=== PATIENT | male | born 1980 | race Caucasian/White ===

== ENCOUNTER 2016-09-02 09:30 | Emergency (ER) | payer SELFPAY ==
[~2016-09-02] VITALS: Ht 172.7 cm; Wt 78.9 kg
[~2016-09-02 09:30] MED LIST: CEFD300C3 PO; CYCL10TA9 PO; MELO-198 PO; NAPR-243 PO; NF-ESOM40C PO; PRILOSEC OTC; RABE20TA; SULF1TAB35; TRAM50TA2 PO
[2016-09-02] MEDS ORDERED: NF-ESOM40C PO (09:44)
--- NOTE | 2016-09-02 10:09 | Diagnostic Imaging Report ---
INDICATION: Chest pain COMPARISON: 06/20/14 FINDINGS: Frontal and lateral views of the chest demonstrate clear lungs bilaterally. The heart size is normal. There is no pneumothorax. The osseous structures normal. IMPRESSION: Negative chest. Dictated by: Dictated on workstation # [id number]
--- NOTE | 2016-09-02 10:10 | Diagnostic Imaging Report ---
INDICATION: Left rib pain COMPARISON: None FINDINGS: 3 views of the left ribs demonstrate no fracture or dislocation. No osseous lesion. No pneumothorax or effusion. IMPRESSION: Negative left rib series. Dictated by: Dictated on workstation # [id number]
--- NOTE | 2016-09-02 10:20 | ED General ---
General Chief Complaint: Chest Wall/Rib Pain Stated Complaint: L RIB CAGE PAIN Nursing Triage Note: PT CO OF L RIB PAIN SEVERE, STATES STARTED YESTERDAY, L LOWER RIB DENIES INJURY AT THIS X.STATES HAD FLU COUPLE WEEKS AGO BUT HAS BEEN FINE PAST FEW DAYS Nursing Sepsis Screen: No Definite Risk Source of Information: Patient Exam Limitations: No Limitations History of Present Illness Time Seen by Provider: 09:40 Initial Comments This 35-year-old gentleman presents to the emergency room with complaints of intermittent intense pain in the left lower chest wall. Pain started yesterday and has been intensifying. He had difficulty sleeping last night despite using ibuprofen 600 mg. He reports having a flulike syndrome about a week ago but those symptoms have resolved. He is afebrile. Denies cough. Pain is worse with inspiration and palpation. Allergies and Home Medications Allergies Coded Allergies: ciprofloxacin (Unverified Allergy, Mild, 03/05/16) Home Medications Esomeprazole Magnesium 40 Mg Cap 40 MG PO DAILY (Reported) Prednisone 20 Mg Tab #8 40 MG PO DAILY Prescribed by: BOGDAN GONZALES on 09/02/16 1037 Constitutional: no symptoms reported EENTM: no symptoms reported Respiratory: see HPI Cardiovascular: no symptoms reported Gastrointestinal: no symptoms reported Genitourinary: no symptoms reported Musculoskeletal: see HPI Skin: no symptoms reported Psychiatric/Neurological: No Symptoms Reported Past Krfjhnq-Czkbhj-Jabfhb Hx Patient Social History Alcohol Use: Denies Use Recreational Drug Use: No Smoking Status: Current Everyday Smoker Recent Foreign Travel: No Contact w/Someone Who Travel: No Recent Infectious Disease Expo: No Recent Hopitalizations: No Immunizations Up To Date Tetanus Booster (TDap): More than 5yrs Seasonal Allergies Seasonal Allergies: Yes Surgeries HX Surgeries: No Respiratory Hx Respiratory Disorders: No Cardiovascular Hx Cardiac Disorders: No Neurological Hx Neurological Disorders: No Reproductive System Hx Reproductive Disorders: No Genitourinary Hx Genitourinary Disorders: No Gastrointestinal Hx Gastrointestinal Disorders: Yes Gastrointestinal Disorders: Gastroesophageal Reflux Musculoskeletal Hx Musculoskeletal Disorders: No Endocrine Hx Endocrine Disorders: No HEENT HX ENT Disorders: No Cancer Hx Cancer: No Psychosocial Hx Psychiatric Problems: No Integumentary HX Skin/Integumentary Disorder: No Blood Transfusions Hx Blood Disorders: No Family Medical History Significant Family History: No Pertinent Family Hx, Heart Disease, Diabetes, Hypertension Physical Exam Vital Signs Vital Sign - Last 12Hours 09/02/16 09:35 Temp 97.4 Pulse 92 Resp 18 B/P 111/96 Pulse Ox 97 Capillary Refill : Less Than 3 Seconds General Appearance: No Apparent Distress WD/WN HEENT: Normal ENT Inspection Neck: Normal Inspection Respiratory: Lungs Clear Normal Breath Sounds No Accessory Muscle Use No Respiratory Distress Other (left lower anterior, lateral, and posterior chest wall tender to palpation) Cardiovascular: Regular Rate, Rhythm No Edema No Murmur Gastrointestinal: Normal Bowel Sounds Non Tender Soft Extremity: Normal Inspection No Pedal Edema Neurologic/Psychiatric: Alert Oriented x3 No Motor/Sensory Deficits Normal Mood/Affect bottling line attendant II-XII Norm as Tested Skin: Normal Color Warm/DryNo Rash Progress/Results/Core Measures Results/Orders My Orders Orders-BOGDAN JENKINS MD Chest Pa/Lat (2 View) (09/02/16 09:48) Ribs, Left 2-3 Views (09/02/16 09:48) Ketorolac Injection (Toradol Injection) (09/02/16 10:30) Medications Given in ED Current Medications Medications Dose Ordered Sig/Cal Route Start Time Stop Time Status Last Admin Dose Admin Ketorolac Tromethamine 60 mg ONCE ONCE IM 09/02/16 10:30 09/02/16 10:32 DC 09/02/16 10:35 60 MG Vital Signs/I&O Vital Sign - Last 12Hours 09/02/16 09/02/16 09:35 10:50 Temp 97.4 97.4 Pulse 92 92 Resp 18 18 B/P 111/96 Pulse Ox 97 97 Blood Pressure Mean: 101 Progress Note : Progress Note X-rays were negative. Toradol was administered for treatment of pain. Diagnostic Imaging Diagonstic Imaging: Xray Plain Films/CT/US/NM/MRI: chest Comments Chest x-ray viewed by me and report reviewed. See report below: NAME: MARIELA OLVERA [facility] REC#: [id number] PT STATUS: REG ER : 1980 PHYSICIAN: BOGDAN JENKINS MD ADMIT DATE: 09/02/16/ER Draft Date of Exam:09/02/16 CHEST PA/LAT (2 VIEW) INDICATION: Chest pain COMPARISON: 06/20/14 FINDINGS: Frontal and lateral views of the chest demonstrate clear lungs bilaterally. The heart size is normal. There is no pneumothorax. The osseous structures normal. IMPRESSION: Negative chest. Dictated on workstation # [id number] Dict: 09/02/16 1006 Trans: 09/02/16 1008 KODAK [id number] Interpreted by: YAZMIN JOSE Diagonstic Imaging: Xray Plain Films/CT/US/NM/MRI: chest (left ribs) Comments Left rib x-rays viewed by me and report reviewed. See report below: NAME: MARIELA OLVERA [facility] REC#: [id number] PT STATUS: REG ER : 1980 PHYSICIAN: BOGDAN JENKINS MD ADMIT DATE: 09/02/16/ER Draft Date of Exam:09/02/16 RIBS, LEFT 2-3 VIEWS INDICATION: Left rib pain COMPARISON: None FINDINGS: 3 views of the left ribs demonstrate no fracture or dislocation. No osseous lesion. No pneumothorax or effusion. IMPRESSION: Negative left rib series. Dictated on workstation # [id number] Dict: 09/02/16 1007 Trans: 09/02/16 1010 KODAK [id number] Interpreted by: YAZMIN JOSE Departure Impression Impression: Primary Impression: Chest wall pain Disposition: 01 HOME, SELF-CARE Condition: Improved Departure-Patient Inst. Decision time for Depature: 10:15 Referrals: KEVEN DICKSON MD (PCP/Family) Primary Care Physician Patient Instructions: Chest Pain That Is Not Caused by the Heart (DC) Add. Discharge Instructions: You may take ibuprofen up to 800 mg every 8 hours as needed for pain. Add Tylenol up to 1000 mg every 6 hours as needed for additional pain relief. Return to care early next week if not improving. Return to the ER if symptoms worsen. Complete your steroids as prescribed. Take ibuprofen and prednisone with food or milk to avoid stomach irritation. Avoid taking prednisone close to bedtime. All discharge instructions reviewed with patient and/or family. Voiced understanding. Scripts Prednisone 20 Mg Tab40 Mg PO DAILY #8 TAB Prov:BOGDAN JENKINS MD 09/02/16 BOGDAN JENKINS MD Sep 02, 2016 10:20
[2016-09-02] MEDS ORDERED: KETOROLAC 60 MG/2 ML VIAL IM ONE (10:30)
[2016-09-02] MEDS ORDERED: PRD20T PO (10:37)
[2016-09-02 10:50] VITALS: BP 111/96
== END 2016-09-02 10:50 | disposition home or self-care (01) ==
LOC: EDUNIT# 09:30 → ER 09:31
DX: R07.89 Other chest pain (principal); F17.210 Nicotine dependence, cigarettes, uncomplicated
CPT/HCPCS: 71020; 71100; 96372; 99283